=== PATIENT | female | born 1975 | race Two or more races ===

== ENCOUNTER 2018-12-09 08:25 | Outpatient (CLI) | payer OTHER | END 2018-12-09 08:38 | disposition home or self-care (01) | LOC: MAMO-SONO 08:25 | DX: N60.11 Diffuse cystic mastopathy of right breast (principal); N60.12 Diffuse cystic mastopathy of left breast; Z12.31 Encounter for screening mammogram for malignant neoplasm of breast; N80.3 Endometriosis of pelvic peritoneum ==

== ENCOUNTER 2019-02-02 07:48 | Day surgery (SDC) | payer OTHER ==
[2019-02-02] MEDS ORDERED: PERCOCET 5-3251 EACH PO (15:35)
== END 2019-02-02 19:05 | disposition home or self-care (01) ==
LOC: CIR.AMB 07:48
DX: N80.1 Endometriosis of ovary (principal); N84.0 Polyp of corpus uteri